=== PATIENT | male | born 1970 | race African-American/Black ===

== ENCOUNTER → 2018-09-01 | Outpatient (CLI) | payer OTHER, BC ==
[~2018-09-01] MED LIST: IOHEXOL 300 MG/ML 75 ML VIAL. IV ONE
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
== END | disposition home or self-care (01) ==
LOC: CT 12:11
PROVIDERS: ATTEND Family Medicine
DX: R10.13 Epigastric pain (principal); M47.896 Other spondylosis, lumbar region; V48.4XXA Person boarding or alighting a car injured in noncollision transport accident, initial encounter
CPT/HCPCS: 74160; Q9967